=== PATIENT | male | born 1970 | race Caucasian/White ===

== ENCOUNTER 2025-01-17 09:37 | Day surgery (SDC) | payer BC ==
[2025-01-17 09:20] LABS: Absolute Eosinophils 0.2 K/uL (0-0.5); Absolute Monocytes 0.5 K/uL (0.1-1.3); Absolute Neutrophil 3.6 K/uL (1.8-8.0); Basophils % 0.8 % (0-1.3); Eosinophils % 2.4 % (0-4.4); Hematocrit 45.5 % (39.6-49.0); Hemoglobin 15.6 g/dL (13.6-17.9); Lymphocytes % 31.9 % (15.3-44.8); MCH 31.8 pg (27.0-35.0); MCHC 34.3 g/dL (32.0-36.0); MCV 92.6 fL (80-100); MPV 8.6 fL (7.6-11.3); Monocytes % 8.3 % (3.3-12.3); Neutrophils % 56.6 % (41.7-73.7); Nucleated Red Blood Cells % 0.6 % (0-0); Platelets 185 thou/uL (152-406); RBC Red Blood Cell Count 4.91 M/uL (4.33-5.43); Red Cell Distribution Width 13.5 % (12.1-15.2)
--- NOTE | 2025-01-17 09:23 | RAD REPORT ---
EXAMINATION: TWO VIEW CHEST XR CLINICAL INDICATION: Pre-op pending back mass removal TECHNIQUE: 2 views of the chest was performed. COMPARISON: No prior exam. FINDINGS: The lungs are well inflated and clear. The heart is upper limit of normal in size. No displaced fract ures evident. IMPRESSION: No acute or significant abnormalities.
[2025-01-17 09:59] LABS: Anion Gap 9.8 mEq/L (5.0-15.0); Potassium 4.8 mEq/L (3.5-5.1)
[2025-01-17] MEDS: Ringers Lactate 1,000 ML IV ONE (10:27)
--- NOTE | 2025-01-17 11:55 | EKG ---
Test Date: 2025-01-17 Test Time: 08:58:54 [employer]rup Maker: MAYTE MEASUREMENT RESULTS: Intervals: Rate: 61 FL: 160 QRSD: 88 QT: 404 QTc: 406 [place]: P: 117 FL: 160 QRS: 72 T: 52 INTERPRETIVE STATEMENTS: Normal sinus rhythm Normal ECG No previous ECG available for comparison Electronically Signed On 01-17-25 11:55:08 CDT by Shahbaz Garcia
[2025-01-17] MEDS ORDERED: MIDAZOLAM HCL 2 MG/2 ML INJ ONE (12:01)
[2025-01-17] MEDS ORDERED: propofoL 200 MG/20 ML VIAL IV ONE (12:01)
[2025-01-17] MEDS ORDERED: FENTANYL CITR 100 MCG/2 ML ONE (12:01)
[2025-01-17] MEDS ORDERED: LIDOCAINE 1% MPF 2 ML AMPULE ONE (12:01)
[2025-01-17] MEDS ORDERED: dexAMETHasone 10 MG/ML VIAL ONE (12:02)
[2025-01-17] MEDS ORDERED: KETOROLAC 30 MG/ML INJ ONE (12:02)
[2025-01-17] MEDS ORDERED: ONDANSETRON 4 MG/2 ML VIAL ONE (12:02)
[2025-01-17] MEDS ORDERED: LIDOCAINE 1% MPF 5 ML VIAL ONE (12:02)
[2025-01-17] MEDS: CEFAZOLIN SODIUM 1 GM/VIAL ONE (12:35)
[2025-01-17] MEDS: BUPIVACAINE 0.5% PF 10 ML VIAL ONE (13:05)
[2025-01-17 13:50] VITALS: O2SAT 100
--- NOTE | 2025-01-17 14:00 | P.BOP ---
Preoperative diagnosis: infected subq Mass 12x6 cm Postoperative diagnosis: same Primary procedure: Excisional biopsy of infected subq Mass 12x6 cm Estimated blood loss: <10cc Specimen: masses x 2, culture Findings: two masses superimposed on another Anesthesia: General Complications: None Drain(s): Wound drain (yael) Transferred to: Recovery Room Condition: Good
[2025-01-17] MEDS: FENTANYL CITR 100 MCG/2 ML ONE (14:26)
[2025-01-17 14:41] VITALS: TEMP 97.3
[2025-01-17] MEDS: CODEINE 30MG/APAP 300MG TAB ONE (15:10)
[2025-01-17 15:44] VITALS: BP 130/84
--- NOTE | 2025-01-22 23:21 | OP ---
Date of Procedure: 01/22/2025 Surgeon: Memo Ball MD Diagnosis: Infected subcutaneous mass, 12 x 6 cm. Postoperative Diagnosis: Infected subcutaneous mass, 12 x 6 cm. Procedure: Excisional biopsy of infected subcutaneous mass, 12 x 6 cm. Estimated Blood Loss: Less than 10 stay. Specimens: Two masses, there are superimposed one to each other. The total that is 12 x 6 cm, one l ooked like a fatty tumor. The other one looks like a cyst. The cyst is one is trying to infect the whole area. Anesthesia: General plus local. Packing: Wound drain, [place]. Indications For Procedure: This is the case of a male who comes to us with a big mass in the back an d an area, which is more pronounced and has the appearance that is starting to get infected from that area or may be just a superimposed mass on the other one. One of them are near in the same location s, one of them will interfere with each other especially with infection. The patient was started on antibiotics and recommended to have it excised with benefits, alternatives, and risks including, but not limited to infection, bleeding, damage to adjacent structures, anesthesia complication, recurrenc e, NH, and . He also understands this may not relieve symptoms, he might need more than one felicity gical intervention. He understood, and signed a consent. Procedure In Detail: The patient was brought to the operating room, placed in supine position. Anes thesia was without complication. The area of concern was previously marked by me and the patient and the was a nurse in this hospital and the recovery room. The patient was brought to the operati ng room, placed in supine position. Anesthesia was without complication. The patient was placed in lateral decubitus position with proper protection. We trying to make an incision to include both jeramie michael, since once superimposed in the inferior margin and trying to set them separate this weekend, alt jayson it is 1 large cavity, especially we are trying to do . I believe infections mostly i n the secondary mass. Mass was excised. Both of them were excised. The entire area is about 12 x 6 cm. The area was irrigated. Hemostasis obtained. Since there is a question and treatment of infec tion in that region, I proceeded to close the area with [place]. He is going to be on a trip soon. He would prefer not to have an open wound and that is why the urgency of the situation. I closed the areas with a combination of a chromic and then after that 2-0 nylon, but leaving a drain underneath Carlie. That will be removed in the next few days. Local anesthesia was applied to the area. The patient tolerated the procedure well. The patient was sent to Recovery in stable condition. Condition: Stable. Disposition: Home. Activity: As tolerated. No heavy lifting. Follow up in my office in 1 week. Call for appointment at [phone]. Keep area dry for the next 48 h ours, then after that remove the dressings and remove the Carlie and continue with dressing changes. It is important that he also continue with antibiotics. WILFREDO/GABRIELA Voice ID: [id number] Report ID: [id number]
== END 2025-01-17 15:30 | disposition home or self-care (01) ==
LOC: OR 09:37
PROVIDERS: ATTEND Surgery
PROC: 0JB70ZZ Excision of Back Subcutaneous Tissue and Fascia, Open Approach (ICD-10-PCS; principal; 2025-01-17 12:29)
DX: L72.0 Epidermal cyst (principal); L08.9 Local infection of the skin and subcutaneous tissue, unspecified
CPT/HCPCS: 11406; 93005; 87070; 85025; 80048; 36415; 87205 ×2; 88304; 87075; 71046; J2704; J2003; J2250; J3010 ×2; J1100; J2405; J7120; J0690